=== PATIENT | female | born 1990 | race African-American/Black ===

== ENCOUNTER 2024-02-16 17:34 | Emergency (ER) | payer SELFPAY ==
[2024-02-16] MEDS ORDERED: levETIRAcetam 500 MG TAB ONE (18:46)
== END 2024-02-16 18:50 | disposition home or self-care (01) ==
LOC: ERS 17:34
DX: G40.909 Epilepsy, unspecified, not intractable, without status epilepticus (principal); Z79.899 Other long term (current) drug therapy
CPT/HCPCS: 99284